=== PATIENT | female | born 1960 | race Caucasian/White ===

== ENCOUNTER → 2017-01-20 | Outpatient (CLI) | payer MEDICAID ==
--- NOTE | 2017-01-20 18:13 | XR ---
EXAMINATION TYPE: XR chest 2V DATE OF EXAM: 01/20/2017 COMPARISON: NONE HISTORY: Cough TECHNIQUE: Frontal and lateral views of the chest are obtained. FINDINGS: Heart and mediastinum are normal. Lungs are clear. Costophrenic angles are clear. There ar e no hilar masses. Bony thorax is intact. IMPRESSION: Normal chest
== END ==
LOC: RADXRMAIN 16:11
PROVIDERS: ATTEND Family Medicine
DX: J44.9 Chronic obstructive pulmonary disease, unspecified (principal)
CPT/HCPCS: 71020

== ENCOUNTER 2017-02-22 10:14 | Observation (INO) | payer MEDICAID ==
[2017-02-17 17:19] VITALS: BMI 28.3
[~2017-02-22 10:14] MED LIST: ACETAMINOPHEN TAB 500 MG TAB PO ONE; DEXAMETHASONE SOD PHOSPHATE 10 MG/ML 1 ML VIAL IV ONE; MIDAZOLAM 2 MG/2 ML VIAL IV PRN; ONDANSETRON 4 MG/2 ML VIAL IVP ONE; ceFAZolin IN SWFI 2 GM/20 ML SYRINGE IVP ONE
[2017-02-22] MEDS ORDERED: LACTATED RINGERS 1,000 ML IV ONE (10:30)
[2017-02-22] MEDS ORDERED: LIDOCAINE 1% 20 ML VIAL (10MG/ML) FOR IV START INTRADERMA ONE (10:30)
[2017-02-22] MEDS ORDERED: PROPOFOL 10 MG/ML 20 ML VIAL IV ONE (11:31)
[2017-02-22] MEDS ORDERED: LIDOCAINE 1% INJ 10MG/ML (20 ML MDV) ONE (11:31)
[2017-02-22] MEDS ORDERED: fentaNYL (PF) 50 MCG/ML 2 ML AMP ONE (11:31)
[2017-02-22] MEDS ORDERED: HYDROmorphone (PF) 1 MG/ML ONE (11:31)
[2017-02-22] MEDS ORDERED: MIDAZOLAM 2 MG/2 ML VIAL ONE (11:31)
[2017-02-22] MEDS ORDERED: BACITRACIN 500 UNIT/GM OINT 28.4 GM TUBE TOPICAL ONE (12:32)
[2017-02-22] MEDS ORDERED: SENNOSIDES-DOCUSATE SODIUM 1 EACH TAB PO PRN (12:58)
[2017-02-22] MEDS ORDERED: hydrOXYzine PAMOATE 25 MG CAP PO PRN (12:58)
[2017-02-22] MEDS ORDERED: HYDROmorphone 1 MG/ML 1 ML SYRINGE IVP PRN ×2 (12:58)
[2017-02-22] MEDS ORDERED: ONDANSETRON 4 MG/2 ML VIAL IVP PRN (12:58)
[2017-02-22] MEDS ORDERED: diphenhydrAMINE 25 MG CAP PO PRN (12:58)
[2017-02-22] MEDS ORDERED: METOCLOPRAMIDE 5 MG/ML 2 ML VIAL IVP PRN (12:58)
[2017-02-22] MEDS ORDERED: PROCHLORPERAZINE SUPPOSITORY 25 MG SUPP RECTAL PRN (12:58)
[2017-02-22] MEDS ORDERED: TEMAZEPAM 15 MG CAP PO PRN (12:58)
[2017-02-22] MEDS: HYDROmorphone 1 MG/ML 1 ML SYRINGE IVP PRN ×6 (13:01→21:18)
[2017-02-22] MEDS: ONDANSETRON 4 MG/2 ML VIAL IVP ONE ×2 (13:08→14:47)
[2017-02-22] MEDS ORDERED: KETOROLAC 30 MG/ML 1 ML VIAL IVP ONE (13:09)
[2017-02-22] MEDS ORDERED: diphenhydrAMINE 50 MG/ML 1 ML VIAL IVP ONE (13:11)
[2017-02-22] MEDS ORDERED: SODIUM CHLORIDE 0.9% 1,000 ML IV ONE (13:24)
--- NOTE | 2017-02-22 13:27 | OP ---
OPERATIVE REPORT DATE OF PROCEDURE: 02/22/2017 PREOPERATIVE DIAGNOSIS: Right knee inferior pole patellar patella fracture. POSTOPERATIVE DIAGNOSIS: Right knee very distal inferior pole patella fracture with patellar tendon rupture as well. PROCEDURE PERFORMED: Open repair right patellar tendon. SURGEON: Gelacio Frankel MD. WATCH HAIRSPRING ASSEMBLER: JOSSELINE Newman. ANESTHESIA: General endotracheal. ESTIMATED BLOOD LOSS: 25 mL. TOURNIQUET: None. DRAINS: None. COMPLICATIONS: None apparent. DISPOSITION: Postanesthesia care unit. INDICATIONS: Odalis is a very pleasant, 57-year-old female who slipped and fell, had significant pain and injury to her right knee. Workup including x-rays revealed a displaced distal pole patellar patella fracture. She presented to my office. Workup including x-rays revealed as such. She is an independent ambulator. Treatment options were discussed. Recommendation was for open reduction, internal fixation of the patella fracture and if the bone quality was too fragmented or too small for internal fixation of the patella fracture then the recommendation was to proceed with a primary repair of the right patellar tendon. The risks of procedure were discussed with Odalis and her family in detail. These risks include, but were not limited to risk of infection, nerve damage, bleeding, pain and risk of deep vein thrombosis that could lead to fatal pulmonary embolism. Further risks include failure of the tendon to heal and possibility for revision repair of the patellar tendon. All of Odalis and her family's questions were answered to their satisfaction. An appropriate informed consent was obtained. DESCRIPTION OF THE PROCEDURE: Patient identified in preoperative holding area. Surgical sites marked by both the patient and myself. She was given 2 grams of Ancef IV for prophylactic purposes. She was then transferred to the operative suite. She was placed supine on the operative table. General anesthetic was then administered and dosed per the anesthesia department without apparent complication. Tourniquet was then placed high on the right upper thigh well-padded in preparation for surgery. The tourniquet was not inflated throughout the entire procedure. The patient's right lower extremity was then prepped and draped in usual sterile fashion. Standard surgical pause was then undertaken to ensure that we were operating on the correct site and that appropriate preoperative antibiotic has been given. All staff in room are in agreement and we proceeded. The outlines of the patella as well as patellar tendon were marked with surgical pen. A planned 7 to 10 cm incision starting at the tibial tubercle and extending up to the superior pole of the patella was marked with surgical pen. Incision was then made with a 10 blade scalpel. Dissection was carried down sharply to the superficial fascia. This was then incised in line with the patellar tendon. Great care was taken to maximize the flaps for coverage at the end of the case. The paratenon was then incised in line with the patellar tendon and then it was retracted. She had obvious disruption of the patellar tendon. The inferior pole patella fracture portion of this was extremely fragmented. There was just a very small little pieces of bone noted. There was no significant bone fragments that would be amenable to any sort of internal fixation. Decision was made at that time to proceed with primary patellar tendon repair. Some of the comminuted fragments were removed. The nonarticular portion of the inferior pole of patella was then cleaned of any fibrinous tissue and then was roughened up to provide a nice bleeding surface for the repair with a curette. The undersurface of the patella was then evaluated. The cartilage was intact with no cartilage damage. The knee was then thoroughly irrigated with sterile saline solution with antibiotic added. I then proceeded with repair. I utilized two #5 FiberWire sutures. These were placed both medially and laterally and were secured to the tendon with a locking Krackow type suture. I then drilled 3 parallel holes from inferior to superior in the patella. The most lateral and most medial holes were 2.0 mm holes and the central hole was a 2.5 mm hole to accept 2 limbs of the #5 suture. The FiberWire suture limbs were then passed through the bone tunnels. The central 2 limbs were taken through the central hole and the lateral limb was taken through the lateral hole in the patella and the medial limb was taken through the medial tunnel. These were brought out superiorly through the quadriceps tendon utilizing a Hewson suture passer. The sutures were then tunneled under the tendon as to tie them over bone. The lateral sutures were then tied securely over bony bridge and the medial sutures were likewise tied securely over bony bridge. This provided good secure fixation of the patellar tendon to the inferior pole of patella. The medial lateral retinaculum were then repaired with #1 Vicryl interrupted suture. The patellar tendon repair was also reinforced with #1 Vicryl interrupted suture. The paratenon was then closed with 0 Vicryl interrupted suture and the fascial layer was closed with 0 Vicryl interrupted suture. Again the wound was thoroughly irrigated with sterile saline solution with antibiotic added. The subcutaneous tissue was closed with 2-0 Vicryl interrupted suture. The skin was closed with 3-0 Quill suture. Dermabond was applied to the incision. All sponge and needle counts were deemed correct prior to closure. The patient tolerated the procedure without apparent complication. She was placed into a hinged knee brace locked in full extension. She was transferred to the recovery room in stable condition. MMODL / IJN: [id number] / [facility]Van
[2017-02-22] MEDS: MEPERIDINE 50 MG/ML SYRINGE IVP ONE ×2 (13:45→14:02)
[2017-02-22] MEDS: LACTATED RINGERS 1,000 ML IV SCH ×2 (14:47→17:46)
[2017-02-22] MEDS: ceFAZolin IN SWFI 2 GM/20 ML SYRINGE IVP SCH (20:01)
[2017-02-22] MEDS: ASPIRIN 325 MG TAB PO SCH (21:19)
[2017-02-23] MEDS: HYDROmorphone 1 MG/ML 1 ML SYRINGE IVP PRN ×3 (01:35→07:26)
[2017-02-23] MEDS: LACTATED RINGERS 1,000 ML IV SCH ×3 (01:39→09:26)
[2017-02-23] MEDS: ceFAZolin IN SWFI 2 GM/20 ML SYRINGE IVP SCH (03:49)
[2017-02-23] MEDS ORDERED: HYDROcodone/APAP 7.5-325MG 1 EACH TAB PO PRN (08:45)
--- NOTE | 2017-02-23 08:53 | P.DS ---
Providers Date of admission: 02/23/17 02:51 Expected date of discharge: 02/23/17 Attending physician: Gelacio Frankel Primary care physician: Trell Weeks - Discharge Diagnosis(es) (1) Patella fracture Patient is a 57-year-old female who was admitted to the OR on Tuesday, 2017 to undergo ORIF of right patella and patellar tendon repair. She tolerated procedure well without complication. Her postoperative hospital course has remained without complication. On day of discharge she desires discharge to home. On day of discharge she is afebrile, vital signs stable, labs within acceptable ranges, wound is benign, neurovascular status intact, abdomen and calf are both soft and nontender. She is denying new complaints, abdominal pain, calf pain, numbness, tingling, fever, chills, chest pain, shortness of breath, dizziness, headaches, slurred speech or other. Current Visit: No Status: Acute Priority: Medium Procedures: ORIF right patella Patient Condition at Discharge: Good Plan - Discharge Summary Discharge Rx Participant: Yes New Discharge Prescriptions: New Aspirin 325 mg PO BID #60 tab Docusate [Colace] 100 mg PO BID #60 capsule HYDROcodone/APAP 7.5-325MG [[place] 7.5-325] 1 - 2 tab PO Q6HR PRN #60 tab PRN Reason: Pain No Action Naproxen [Naprosyn] 500 mg PO Q12HR PRN PRN Reason: Pain ALPRAZolam [Xanax] 0.25 mg PO BID PRN PRN Reason: Anxiety Hydrocodone/Acetaminophen [[place] 5-325] 1 tab PO Q6HR PRN #20 tab PRN Reason: Pain Discharge Medication List ALPRAZolam [Xanax] 0.25 mg PO BID PRN 02/16/17 [History] Hydrocodone/Acetaminophen [[place] 5-325] 1 tab PO Q6HR PRN #20 tab 02/16/17 [Rx] Naproxen [Naprosyn] 500 mg PO Q12HR PRN 02/16/17 [History] Aspirin 325 mg PO BID #60 tab 02/22/17 [Rx] Docusate [Colace] 100 mg PO BID #60 capsule 02/22/17 [Rx] HYDROcodone/APAP 7.5-325MG [[place] 7.5-325] 1 - 2 tab PO Q6HR PRN #60 tab [Rx] Follow up Appointment(s)/Referral(s): Gelacio Frankel MD [STAFF PHYSICIAN] - 10 Days Activity/Diet/Wound Care/Special Instructions: Maintain brace and bandage F/U with Dr. Frankel in office keep clean and dry take meds as directed elevate extremity Discharge Disposition: HOME SELF-CARE
[2017-02-23] MEDS: ASPIRIN 325 MG TAB PO SCH (09:28)
[2017-02-23 23:00] VITALS: BP 142/83; PULSE 71; RESP 18; TEMP 98.6
== END 2017-02-23 13:21 | disposition home or self-care (01) ==
LOC: OR 10:14 → 3SUR 12:55 → OR 02-23 02:51 → 3SUR 02-23 02:51
PROVIDERS: ADMIT Orthopaedic Surgery Sports Medicine; ATTEND Orthopaedic Surgery Sports Medicine
DX: S82.001A Unspecified fracture of right patella, initial encounter for closed fracture (principal); S76.111A Strain of right quadriceps muscle, fascia and tendon, initial encounter; Z79.899 Other long term (current) drug therapy; E78.5 Hyperlipidemia, unspecified; F17.200 Nicotine dependence, unspecified, uncomplicated; I10 Essential (primary) hypertension; Z79.1 Long term (current) use of non-steroidal anti-inflammatories (NSAID); Z79.891 Long term (current) use of opiate analgesic; Y92.512 Supermarket, store or market as the place of occurrence of the external cause; W01.0XXA Fall on same level from slipping, tripping and stumbling without subsequent striking against object, initial encounter
CPT/HCPCS: 27380; 27524; 94760; 97161; G0378; J2250; J1200; J1100; J2175; J0690 ×2; J2405; J2001; J3010; J1885; J1170 ×2; J2704

== ENCOUNTER → 2019-01-26 | Outpatient (CLI) | payer BC ==
--- NOTE | 2019-01-29 11:30 | MM ---
Reason for exam: screening (asymptomatic). Last mammogram was performed 1 year and 1 month ago. History: Patient is postmenopausal. Benign cyst aspiration of the right breast, May 25, 2004. Benign excisional biopsy of the left breast, February 23, 2002. Benign stereotactic core biopsy of the left breast, February 01, 2002. Core biopsy of the left breast. Physical Findings: A clinical breast exam by your physician is recommended on an annual basis and results should be correlated with mammographic findings. MG 3D Screening Mammo W/Cad Bilateral CC and MLO view(s) were taken. Prior study comparison: December 13, 2017, bilateral MG [facility] screening mammo. November 26, 2015, bilateral MG screening mammo w CAD. There are scattered fibroglandular densities. There are benign appearing stable bilateral masses likely intramammary lymph nodes. No suspicious abnormality. No significant changes when compared with prior studies. ASSESSMENT: Benign, BI-RAD 2 RECOMMENDATION: Routine screening mammogram of both breasts in 1 year.
== END | disposition home or self-care (01) ==
LOC: RADMAMWWP 13:52
PROVIDERS: ATTEND Family Medicine
DX: Z12.31 Encounter for screening mammogram for malignant neoplasm of breast (principal)
CPT/HCPCS: 77063; 77067

== ENCOUNTER → 2020-01-07 | Outpatient (CLI) | payer MEDICARE ==
--- NOTE | 2020-01-07 08:57 | US ---
EXAMINATION TYPE: US duplex aorta DATE OF EXAM: 01/07/2020 COMPARISON: NONE CLINICAL HISTORY: Z13.6 screening for cardiovascular disorder. Smoker x 40 years EXAM MEASUREMENTS: Abdominal Aorta: Proximal: 2.0cmTrans. x 2.5cm A/P Mid: 2.1cm Trans. x 1.8cm A/P Distal: 1.9cm Trans. x 1.8cm A/P Bifurcation: 1.0cm Trans. x 0.92cm A/P Right ASHANTI; 1.2 cm Trans. x 1.0cm A/P Left ASHANTI. Very mild intimal wall thickening is noted distal abdominal aorta. Color flow and PSV are documented in distal aorta. IMPRESSION: 1. Mild atherosclerotic changes with no evidence of aortic aneurysm. Maximal dimension is within the proximal aorta measuring 2.5 cm.
== END | disposition home or self-care (01) ==
LOC: RADUSWWP 08:17
PROVIDERS: ATTEND Family Medicine
DX: I70.0 Atherosclerosis of aorta (principal)
CPT/HCPCS: 93979

== ENCOUNTER → 2020-03-21 | Outpatient (CLI) | payer MEDICARE ==
--- NOTE | 2020-03-24 08:19 | MM ---
Reason for exam: screening (asymptomatic). Last mammogram was performed 1 year and 2 months ago. History: Patient is postmenopausal. Benign cyst aspiration of the right breast, May 25, 2004. Benign excisional biopsy of the left breast, February 23, 2002. Benign stereotactic core biopsy of the left breast, February 01, 2002. Core biopsy of the left breast. Physical Findings: A clinical breast exam by your physician is recommended on an annual basis and results should be correlated with mammographic findings. MG 3D Screening Mammo W/Cad Bilateral CC and MLO view(s) were taken. Prior study comparison: January 26, 2019, bilateral MG 3d screening mammo w/cad. December 13, 2017, bilateral MG [facility] screening mammo. There are scattered fibroglandular densities. There is chronic nodularity bilaterally. There is no discrete abnormality. ASSESSMENT: Benign, BI-RAD 2 RECOMMENDATION: Routine screening mammogram of both breasts in 1 year.
== END | disposition home or self-care (01) ==
LOC: RADMAMWWP 12:58
PROVIDERS: ATTEND Family Medicine
DX: Z12.31 Encounter for screening mammogram for malignant neoplasm of breast (principal)
CPT/HCPCS: 77063; 77067

== ENCOUNTER → 2020-03-24 | Outpatient (CLI) | payer MEDICARE ==
--- NOTE | 2020-03-24 15:26 | BD ---
EXAMINATION TYPE: Axial Bone Density DATE OF EXAM: 03/24/2020 COMPARISON: 11.26.2015 CLINICAL HISTORY: 60 YR OLD FEMALE.....ICD-10 CODE: Z78.0 MENOPAUSAL STATE Height: 61.4 Weight: 162 FRAX RISK QUESTIONS: History of Fracture in Adulthood: YES Secondary Osteoporosis: YES 1 3. Menopause before 45: YES 4Current Tobacco Use: YES RISK FACTORS HISTORY OF: HX OF PATELLAR FX RT KNEE, 4 YRS AGO Family History of Osteoporosis: YES, MOTHER Postmenopausal woman: YES AT AGE 40 YRS OLD Hyperparathyroidism: NO Adrenal Insufficiency: NO MEDICATIONS: Additional Medications: XANAX, ZOLOFT, VIT D Additional History: NOTHING ADDITIONAL TO NOTE HERE EXAM MEASUREMENTS: Bone mineral densitometry was performed using the [employer] System. Bone mineral density as measured about the Lumbar spine is: ----- L1-L4(G/cm2): 1.124 T Score Values are as follows: ----- L1: 0.0 ----- L2: -0.8 ----- L3: -0.6 ----- L4: -0.6 ----- L1-L4: -0.5 Bone mineral density has: Decreased -2.4% SINCE THE 11.26.2015 STUDY Bone mineral density about the R hip (g/cm2): 0.827 Bone mineral density about the L hip (g/cm2): 0.924 T Score values are as follows: -----R Neck: -1.5 -----L Neck: -1.3 -----R Total: -1.4 -----L Total: -0.7 Bone mineral density has: Decreased -2.6% SINCE THE 11.26.2015 STUDY FRAX%s: THERE IS A 13.7% CHANCE FOR A MAJOR OSTEOPOROTIC FX AND A 2.1% FOR HIP......PROBABILITY FO R FX IN 10 YRS TIME IMPRESSION: Osteopenia right hip. NOTE: T-SCORE=SD OF THE YOUNG ADULT MEAN.
== END | disposition home or self-care (01) ==
LOC: RADBDWWP 13:20
PROVIDERS: ATTEND Family Medicine
DX: M85.88 Other specified disorders of bone density and structure, other site (principal); Z78.0 Asymptomatic menopausal state
CPT/HCPCS: 77080

== ENCOUNTER → 2022-03-05 | Outpatient (CLI) | payer MEDICARE ==
--- NOTE | 2022-03-08 10:08 | MM ---
Reason for Exam: Screening (asymptomatic). Last mammogram was performed 2 year(s) and 0 month(s) ago. Patient History: Menarche at age 12. First Full-Term at age 17. Postmenopausal. Core Biopsy on the Left side. 02/23/2002, Benign Excisional Biopsy on the left side. 05/25/2004, Benign Cyst Aspiration on the right side. 02/01/2002, Benign Stereotactic Core Biopsy on the left side. Risk Values: Nataly 5 year model risk: 1.7%. NCI Lifetime model risk: 7.5%. Prior Study Comparison: 12/13/2017 Bilateral Screening Mammogram, [facility]. 01/26/2019 Bilateral Screening Mammogram, [facility]. 03/21/2020 Bilateral Screening Mammogram, [facility]. Tissue Density: There are scattered fibroglandular densities. Findings: Analyzed By CAD. Pattern appears symmetrical and stable. Chronic nodularity is within the left breast. No significant interval changes are evident. No suspicious groups of microcalcifications, spiculated or lobular masses, architectural distortion or other secondary signs of malignancy are mammographically apparent. Overall Assessment: Benign, BI-RAD 2 Management: Screening Mammogram of both breasts in 1 year. A negative mammogram report should not preclude additional follow up of suspicious palpable abnormalities. Patient should continue monthly self breast exam. A clinical breast exam by your physician is recommended on an annual basis and results should be correlated with mammographic findings. Electronically signed and approved by: Eamon Marquez D.O. Radiologis
== END | disposition home or self-care (01) ==
LOC: RADMAMWWP 14:34
PROVIDERS: ATTEND Family Medicine
DX: Z12.31 Encounter for screening mammogram for malignant neoplasm of breast (principal); Z78.0 Asymptomatic menopausal state; Z98.890 Other specified postprocedural states
CPT/HCPCS: 77063; 77067

== ENCOUNTER → 2023-03-08 | Outpatient (CLI) | payer MEDICARE ==
--- NOTE | 2023-03-08 14:38 | XR ---
EXAM TYPE: LUMBAR SPINE X RAY SERIES COMPARISON: NONE HISTORY: Pain TECHNIQUE: 4 views are submitted. FINDINGS: Alignment is anatomic. The pedicles are intact. The transverse processes are intact. There is no s pondylolysis or spondylolisthesis. Multilevel hypertrophic changes are seen. There is diffuse mild d egenerative disc disease L5-S1 with facet arthropathy. Multilevel degenerative disc disease thoracolu mbar junction. IMPRESSION: 1. Mild degenerative disc disease at L5-S1 with facet arthropathy suspected foraminal encroachment co nsider follow-up MRI. 2. Multilevel degenerative disc disease thoracolumbar junction. 3. Diffuse osteopenia.
--- NOTE | 2023-03-09 08:42 | BD ---
EXAMINATION TYPE: Axial Bone Density DATE OF EXAM: 03/08/2023 CLINICAL HISTORY: 63 years old Female. ICD-10 CODE: MENOPAUSAL STATE Z78.0 Height: 61 Weight: 151.0 FRAX RISK QUESTIONS: Alcohol (3 or more units per day): no Family History (Parent hip fracture): no Glucocorticoids (More than 3mos): no History of Fracture in Adulthood: rt wrist Secondary Osteoporosis: 1. Type 1 Diabetes: no 2. Hyperthyroidism: no 3. Menopause before 45: yes 4. Malnutrition: no 5. Chronic liver disease: no Rheumatoid Arthritis: no Current Tobacco Use: yes RISK FACTORS HISTORY OF: Hip Fracture (Right/Left): no Spine Fracture: no History of Wrist Fracture: yes When: 1991 Surgery to Spine/Hip(right/left)/Wrist (right/left): no Family History of Osteoporosis: no Active: yes Diet low in dairy products/other sources of calcium: yes Postmenopausal woman: yes Take estrogen and/or progesterone medications: no Lost more than 2 inches in height since high school: no Frequent falls: no Poor Health: no Hyperparathyroidism: no Adrenal Insufficiency: no MEDICATIONS: Prednisone or other steroids: no Thyroid Medications: no Osteoporosis Medications: no Additional Medications: Cholesterol Meds, Xanax, Depression meds, Additional History: EXAM MEASUREMENTS: Bone mineral densitometry was performed using the [employer] System. Bone mineral density as measured about the Lumbar spine is: ----- L1-L4(G/cm2): 1.074 T Score Values are as follows: ----- L1: -0.5 ----- L2: -1.0 ----- L3: -1.3 ----- L4: -0.8 ----- L1-L4: -0.9 Z Score Values are as follows: ----- L1: 0.8 ----- L2: 0.3 ----- L3: 0.0 ----- L4: 0.5 ----- L1-L4: 0.4 Bone mineral density has: decreased -4.4 % since study of: 03/24/2020 Bone mineral density about the R hip (g/cm2): 0.852 Bone mineral density about the L hip (g/cm2): 0.930 T Score values are as follows: -----R Neck: -1.6 -----L Neck: -1.4 -----R Total: -1.2 -----L Total: -0.6 Z Score values are as follows: -----R Neck: -0.3 -----L Neck: -0.1 -----R Total: -0.2 -----L Total: 0.4 Bone mineral density has: increased 1.8 % since study of: 03/24/2020 FRAX%s: The graph provided illustrates a 15.1% chance for a major osteoporotic fx and a 2.7% chance f or the hips probability for fx in 10 years time. IMPRESSION: Osteopenia (T Score between -2.5 and -1). There is slightly increased risk of fracture and the patient may be considered for treatment. Re-Screen 2-5 years. NOTE: T-SCORE=SD OF THE YOUNG ADULT MEAN.
--- NOTE | 2023-03-09 19:56 | MM ---
Reason for Exam: Screening (asymptomatic). Last screening mammogram was performed 12 month(s) ago. Patient History: Menarche at age 12. First Full-Term at age 17. Postmenopausal. Core Biopsy on the Left side. 02/23/2002, Benign Excisional Biopsy on the left side. 05/25/2004, Benign Cyst Aspiration on the right side. 02/01/2002, Benign Stereotactic Core Biopsy on the left side. Mother had ovarian cancer, age 50. Risk Values: Nataly 5 year model risk: 1.7%. NCI Lifetime model risk: 7.2%. Prior Study Comparison: 11/26/2015 Bilateral Screening Mammogram, [facility]. 12/13/2017 Bilateral Screening Mammogram, [facility]. 01/26/2019 Bilateral Screening Mammogram, [facility]. 03/21/2020 Bilateral Screening Mammogram, [facility]. 03/05/2022 Bilateral MG 3D screening mammo w/cad, [facility]. Tissue Density: There are scattered fibroglandular densities. Findings: Analyzed By CAD. Chronic nodularity on the left. There is no suspicious group of microcalcifications or new suspicious mass in either breast. Overall Assessment: Benign, BI-RAD 2 Management: Screening Mammogram of both breasts in 1 year. . Patient should continue monthly self-breast exams. A clinical breast exam by your physician is recommended on an annual basis. This exam should not preclude additional follow-up of suspicious palpable abnormalities. Note on Nataly scores and lifetime risk: 1. A Nataly score greater than 3% is considered moderate risk. If this is the case, consider specialist referral to assess eligibility for a risk reducing agent. 2. If overall lifetime risk for the development of breast cancer is 20% or higher, the patient may qualify for future screening with alternating mammogram and breast MRI. Electronically signed and approved by: Iggy Leone M.D. Radiologist
== END | disposition home or self-care (01) ==
LOC: RADMAMWWP 12:58
PROVIDERS: ATTEND Family Medicine
DX: Z12.31 Encounter for screening mammogram for malignant neoplasm of breast (principal); M85.89 Other specified disorders of bone density and structure, multiple sites; M51.37 Other intervertebral disc degeneration, lumbosacral region; M47.816 Spondylosis without myelopathy or radiculopathy, lumbar region; M85.88 Other specified disorders of bone density and structure, other site; Z78.0 Asymptomatic menopausal state
CPT/HCPCS: 72110; 77063; 77067; 77080

== ENCOUNTER → 2023-05-03 | Outpatient (CLI) | payer MEDICARE ==
--- NOTE | 2023-05-03 22:02 | MR ---
EXAMINATION TYPE: MR lumbar spine wo con DATE OF EXAM: 05/03/2023 COMPARISON: Lumbar spine x-ray March 08, 2023 HISTORY: Low back pain into legs but worse on the right x6 months TECHNIQUE: Multiplanar, multisequence imaging of the lumbar spine is performed without IV contrast. FINDINGS: Exam slightly suboptimal as there is motion artifact degradation. Sagittal images of the alex mbar spine show vertebral body heights and alignment to appear satisfactory. The intervertebral discs demonstrate multilevel disc desiccation L2-L3 through the L5-S1 levels but the disc space heights ar e maintained. The conus medullaris is normal in position and signal ending mid L1 level small Tarlov cysts on sagittal image 8 including 1.6 cm Tarlov cyst posterior to the S2 vertebra. Mild multilevel anterior spurring is seen. The bone marrow signal intensity is within normal limits. Axial images show T12-L1 and L1-L2 levels to appear within normal limits. Axial images at L2-L3 level shows mild broad-based posterior disc protrusion minimally effacing the a nterior thecal sac. Patent bilateral neural foramina. Axial images at L3-L4 level shows mild broad-based disc bulge effacing the anterior thecal sac. Paten t bilateral neural foramina. Axial images at L4-L5 levels [id number] broad disc bulge with mild to moderate facet arthropath y and ligamentum flavum hypertrophy. There is effacement of the intrathecal sac. There is mild/modera te greater than left bilateral anterior inferior neural foraminal narrowing. Axial images at L5-S1 level show mild/moderate facet arthropathy bilaterally. There is central disc p rotrusion the spinal canal is preserved. There is mild to moderate bilateral anterior inferior neural foraminal narrowing. Paraspinal muscle bulk is maintained. IMPRESSION: Multilevel degenerative changes in the mid to lower lumbar spine as detailed above.
== END | disposition home or self-care (01) ==
LOC: RADMRIMAIN 15:42
PROVIDERS: ATTEND Family Medicine
DX: M47.27 Other spondylosis with radiculopathy, lumbosacral region (principal); M51.27 Other intervertebral disc displacement, lumbosacral region; G96.191 Perineural cyst
CPT/HCPCS: 72148

== ENCOUNTER → 2023-09-22 | Outpatient (CLI) | payer MEDICARE ==
[2023-09-22 12:38] VITALS: BP 141/70; PULSE 65; RESP 16
--- NOTE | 2023-09-22 14:41 | P.PAINPG ---
PQRS Measure Charge Sheet Comment: HISTORY OF PRESENT ILLNESS: A 63 yr old female as a referral from Dr Polk presents today w severe and chronic LBP> 1 yr secondary to DDD, spondylosis and facet arthropathy without myelopathy, BL Sacroiliitis for evaluation. Pt states pain level is provoked at 6 /10 in intensity, constant, localized in the R lower lumbar spine, predominantly axial, sharp in character w occasional shooting pain towards the inner thigh. Pain is provoked by sitting for periods > 30 min. Pain is alleviated by PT x 6 wks which ended in June 2023, physician guided home stretches daily since June 2023, medications (Naproxen), topical BioFreeze, repositioning and rest . Oswestry axial pain score at 25. PMH: OA, Hyperlipidemia, Anxiety PSH: Denies SH: Daily tobacco use, Occasional ETOH use, Cannabis use FH: Non contributory All: See list Meds: See list REVIEW OF ORGAN SYSTEMS: CONSTITUTIONAL: No fevers or chills. No recent weight loss. NEUROLOGICAL: + numbness and tingling along the distal extremities. No seizure disorders or headaches. MUSCULOSKELETAL: + pain PSYCHIATRIC: Denies current depression or suicidal thoughts. Physical Examinations : Constitutional : Cooperative , not in acute distress . Neurologic : Cranial nerve II to XII intact. No focal neurological deficits. Psychiatric : alert & oriented x 3. Matching mood & appropriate affect. Judgment & insight intact. Musculoskeletal : Cervical Spine Motor strength in the deltoid and biceps: Normal right side. Normal Left side Motor strength biceps and the wrist extensors: Normal right side . Normal left side Motor strength in the triceps muscle: Normal right side. Normal left side Deep tendon reflexes: Normal at the biceps. Normal at Brachioradialis. Normal at triceps Vertebral body tenderness to deep palpation over Cervical facet loading test: positive bilaterally Spurling test: positive bilaterally Neck distraction test: positive bilaterally Cynthia sign: positive bilaterally Lumbar spine Motor strength lower extremities ,thigh and legs 5/5 Right side , 5/5 Left side Deep tendon reflexes : Normal Knee Jerk. Normal Ankle Jerk Vertebral body tenderness over Hicks Test positive Lumbar facet Loading Test: positive Right / positive Left Range of motion of the lumbar spine Flexion 30 degrees, extension 10 degrees Straight Leg Raise test: Left/ Right positive at degrees Symone test: positive right / positive left. Severe tenderness over the Sacroiliac joint on the Right / Left sides Gaenslen test: positive bilaterally Seated flexion test: positive bilaterally. Sacral spine : Severe tenderness over the Sacroiliac joint: right side / left side Range of motion: Flexion of the lumbar spine <60 degrees Range of motion: Extension of the l umbar spine <20 degrees Gaenslen's Test positive BL Symone test: positive right side > left side Thigh Thrust Test BL positive Sacral Thrust Test Imaging: MRI non contrast lumbar spine from 05/03/23 reviewed Assessment/ Plan : BL Sacroiliitis, Lumbar radiculopathy Recommendation of BL SI injection #1. Risks, benefits of procedure discussed and patient verbalized understanding. Admits to anti- coagulant use or medical history of diabetes. Protocol for discontinuation/ continuation of medications lucho procedure discussed. All questions answered. I have spent greater than 30 minutes on patient care today. Dr Hale was available by phone for the evaluation of this patient. The time was used to review the medical records including relevant urine studies and Prescription history (MAPs), review of the available imaging, evaluation and examination of the patient, coordination of care with the medical staff and if applicable referring physicians, as well as creation of the medical record - Pain Location Lower Back Pharmacological Interventions: Medication, PRN Medication PQRS Narrative: Smoking Status Current some day smoker Home Medications: Ambulatory Orders ALPRAZolam [Xanax] 0.25 mg PO BID PRN 02/16/17 Hydrocodone/Acetaminophen [[place] 5-325] 1 tab PO Q6HR PRN #20 tab 02/16/17 Naproxen [Naprosyn] 500 mg PO Q12HR PRN 02/16/17 Aspirin 325 mg PO BID #60 tab 02/22/17 Docusate [Colace] 100 mg PO BID #60 capsule 02/22/17 HYDROcodone/APAP 7.5-325MG [[place] 7.5-325] 1 - 2 tab PO Q6HR PRN #60 tab 02/22/17 Controlled Substance Measures - Controlled Substance Measures Is patient prescribed a controlled substance at discharge?: No
== END ==
LOC: PNWHC3 12:15
PROVIDERS: ATTEND Specialist
DX: M46.1 Sacroiliitis, not elsewhere classified (principal); M54.16 Radiculopathy, lumbar region; F17.200 Nicotine dependence, unspecified, uncomplicated
CPT/HCPCS: 99211

== ENCOUNTER 2023-11-15 09:02 | Day surgery (SDC) | payer MEDICARE ==
[~2023-11-15 09:02] MED LIST changes: -ACETAMINOPHEN TAB 500 MG TAB PO ONE; -DEXAMETHASONE SOD PHOSPHATE 10 MG/ML 1 ML VIAL IV ONE; +LACTATED RINGERS 1,000 ML IV SCH; -MIDAZOLAM 2 MG/2 ML VIAL IV PRN; -ONDANSETRON 4 MG/2 ML VIAL IVP ONE; -ceFAZolin IN SWFI 2 GM/20 ML SYRINGE IVP ONE
[2023-11-15 09:39] VITALS: TEMP 97.3
[2023-11-15] MEDS ORDERED: IOPAMIDOL M200 10 ML VIAL ONE (10:28)
[2023-11-15] MEDS ORDERED: methylPREDNISolone ACETATE 80 MG/ML 1 ML VIAL ONE (10:28)
[2023-11-15] MEDS ORDERED: ROPIVACAINE 5MG/ML 20ML VIAL ONE (10:28)
--- NOTE | 2023-11-15 10:38 | P.PCN ---
Date of Procedure: 11/15/23 Procedure(s) Performed: Procedure= bilateral sacroiliac joints steroid injection under fluoroscopy guidance (fluoroscopy image stored on file in the radiology Department ) Preoperative diagnosis= 1-sacroiliitis 2-lumbar degenerative disc disease 3- lumbar facet arthropathy Postoperative diagnosis=Same as preop Diagnosis . Complication = none Condition= stable Anesthesia= local anesthesia with ropivacaine 0.5% 4 ml only Indication for the procedure= patient complaining of low back pain , examination was positive for severe tenderness over the sacroiliac joints bilaterally and patient diagnosed with sacroiliitis, for this reason he/ she was good candidate for sacroiliac joint steroid injection. Description of the procedure= procedure risk and benefits discussed with the patient, including but not limited, risk of infection and bleeding, and ALLERGIC reaction to the medication and not complete pain relief and patient agreed with the preceding patient taken to the operating room, placed in prone position or standard monitors applied to the patient then after induction of anesthesia back prepped with chlorhexidine 3 times , Then under strict sterile technique, first I did the right sacroiliac joint the which was identified under fluoroscopy guidance been local infiltration of the s kin and subcu interstitial with lidocaine 1% then 22-gauge Quincke Needle advanced slowly under fluoroscopy and placed in the right sacroiliac joint needle placement confirmed with AP and oblique and lateral view, then after that Isovue 200 one mL injected which confirmed the correct needle placement with the appropriate arthrogram of the sacroiliac joint, and after appropriate needle placement confirmed and after negative aspiration, or heme , then Ropivacaine 0.5% 2 mL, and 30 mg of Depo-Medrol mixed together and injected in the right sacroiliac joint after negative aspiration patient tolerated the procedure well without any complication. Then the left sacroiliac joint steroid injection done under strict sterile technique local infiltration of the skin and subcu interstitial at the location of the left sacroiliac joint then a 22-gauge Quincke Needle advanced slowly under fluoroscopy time placed in the left sacroiliac joint, needle placement confirmed with AP and oblique and lateral view then after appropriate needle placement confirmed, with the AP and oblique and lateral then after negative aspiration Isovue 200 1 mL injected showed arthropathy of the left sacroiliac joint, and after negative aspiration 0.5% Ropivacaine 2 mL and 30 mg of Depo- Medrol injected in the left sacroiliac joint after negative aspiration patient tolerated the procedure well that any complications and she will follow up in clinic 3 weeks
--- NOTE | 2023-11-15 10:54 | FL ---
EXAMINATION TYPE: FL guided pain mgmt statistic DATE OF EXAM: 11/15/2023 HISTORY: Fluoroscopy time Total dose area product (DAP) in uGy*m?, mGy*cm? (or similar): 0.82711 IMPRESSION: 1. Fluoroscopy time. [facility], , 11/15/2023 10:52 AM
[2023-11-15 11:24] VITALS: BP 144/80; PULSE 65; RESP 16
== END 2023-11-15 11:24 | disposition home or self-care (01) ==
LOC: ORPAIN 09:02
PROVIDERS: ATTEND Specialist
DX: M46.1 Sacroiliitis, not elsewhere classified

== ENCOUNTER → 2023-11-28 | Outpatient (CLI) | payer MEDICARE ==
[2023-11-28 11:43] VITALS: BP 137/79; PULSE 66; RESP 18; TEMP 97.9
--- NOTE | 2023-11-28 15:05 | P.PAINPG ---
PQRS Measure Charge Sheet Comment: HISTORY OF PRESENT ILLNESS: A 63 yr old female presents today w severe and chronic LBP> 1 yr secondary to radiculopathy, spondylosis and facet arthropathy without myelopathy, BL Sacroiliitis for evaluation s/p BL SI injection #1. Pt states she experienced 0 % pain relief x 2 wks s/p procedure. Pt states pain level is provoked at 6 /10 in intensity, constant, localized in the R lower lumbar spine, predominantly axial, sharp in character w occasional shooting pain towards the inner thigh. Pain is provoked by sitting for periods > 30 min. Pain is alleviated by PT x 6 wks which ended in June 2023, physician guided home stretches daily since June 2023, medications, topical , repositioning and rest . Interventional procedures include BL SI injection x1 Medications include Naproxen, BioFreeze Gel, Cannabis use REVIEW OF ORGAN SYSTEMS: CONSTITUTIONAL: No fevers or chills. No recent weight loss. NEUROLOGICAL: + numbness and tingling along the distal extremities. No seizure disorders or headaches. MUSCULOSKELETAL: + pain PSYCHIATRIC: Denies current depression or suicidal thoughts. Physical Examinations : Constitutional : Cooperative , not in acute distress . Neurologic : Cranial nerve II to XII intact. No focal neurological deficits. Psychiatric : alert & oriented x 3. Matching mood & appropriate affect. Judgment & insight intact. Musculoskeletal : Cervical Spine Motor strength in the deltoid and biceps: Normal right side. Normal Left side Motor strength biceps and the wrist extensors: Normal right side . Normal left side Motor strength in the triceps muscle: Normal right side. Normal left side Deep tendon reflexes: Normal at the biceps. Normal at Brachioradialis. Normal at triceps Vertebral body tenderness to deep palpation over Cervical facet loading test: positive bilaterally Spurling test: positive bilaterally Neck distraction test: positive bilaterally Cynthia sign: positive bilaterally Lumbar spine Motor strength lower extremities ,thigh and legs 5/5 Right side , 5/5 Left side Deep tendon reflexes : Normal Knee Jerk. Normal Ankle Jerk Vertebral body tenderness over Hicks Test positive Lumbar facet Loading Test: positive Right / positive Left Range of motion of the lumbar spine Flexion 30 degrees, extension 10 degrees Straight Leg Raise test: Left/ Right positive at degrees Symone test: positive right / positive left. Severe tenderness over the Sacroiliac joint on the Right / Left sides Gaenslen test: positive bilaterally Seated flexion test: positive bilaterally. Sacral spine : Severe tenderness over the Sacroiliac joint: right side / left side Range of motion: Flexion of the lumbar spine <60 degrees Range of motion: Extension of the lumbar spine <20 degrees Gaenslen's Test positive BL Symone test: positive right side > left side Thigh Thrust Test BL positive Sacral Thrust Test Imaging: MRI non contrast lumbar spine from 05/03/23 reviewed Assessment/ Plan : BL Sacroiliitis, Lumbar radiculopathy Will follow up w Dr Polk to explore additional treatment options. All questions answered. I have spent greater than 30 minutes on patient care today. Dr Hale was available by phone for the evaluation of this patient. The time was used to review the medical records including relevant urine studies and Prescription history (MAPs), review of the available imaging, evaluation and examination of the patient, coordination of care with the medical staff and if applicable referring physicians, as well as creation of the medical record - Pain Location Bilateral Hip Pharmacological Interventions: PRN Medication PQRS Narrative: Smoking Status Current some day smoker Hx Alcohol Use (MH) Yes Home Medications: Ambulatory Orders ALPRAZolam [Xanax] 0.25 mg PO BID PRN 02/16/17 Naproxen [Naprosyn] 500 mg PO Q12HR PRN 02/16/17 Rosuvastatin [Crestor] 20 mg PO DAILY 11/14/23 Sertraline [Zoloft] 100 mg PO DAILY 11/14/23 Controlled Substance Measures - Controlled Substance Measures Is patient prescribed a controlled substance at discharge?: No
== END | disposition home or self-care (01) ==
LOC: PNWHC3 09:08
PROVIDERS: ATTEND Specialist
DX: M46.1 Sacroiliitis, not elsewhere classified
CPT/HCPCS: 99211

== ENCOUNTER → 2024-04-20 | Outpatient (CLI) | payer MEDICARE ==
[2024-04-20 15:45] LABS: INR 0.9 (<1.2); Partial Thromboplastin Time 22.2 sec (22.0-30.0); Prothrombin Time 10.1 sec (10.0-12.5)
[2024-04-20 18:17] LABS: Basophils # (A) 0.05 X 10*3/uL (0.00-0.10); Basophils % (A) 0.7 %; Eosinophils # (A) 0.22 X 10*3/uL (0.04-0.35); Eosinophils % (A) 2.9 %; HCT 43.5 % (37.2-46.3); HGB 14.4 g/dL (12.0-15.0); Lymphocytes # (A) 2.52 X 10*3/uL (0.90-5.00); MCH 29.7 pg (27.0-32.0); MCHC 33.1 g/dL (32.0-37.0); MCV 89.7 FL (80.0-97.0); Mean Platelet Volume 11.4 FL (9.5-12.2); Monocytes # (A) 0.56 X 10*3/uL (0.20-1.00); Monocytes % (A) 7.3 %; NRBC Per 100 WBC 0 X 10*3/uL (0.00-0.01); Neutrophils # (A) 4.28 X 10*3/uL (1.80-7.70); Platelet Count 257 X 10*3/uL (140-440); RBC 4.85 X 10*6/uL (4.10-5.20); RDW 12.2 % (11.5-14.5); WBC 7.64 X 10*3/uL (4.50-10.00)
[2024-04-20 20:57] LABS: Appearance,Urine Cloudy (Clear); Bacteria,Urine 3+ (None Seen); Bilirubin,Urine Small (Negative); Blood,Urine Negative (Negative); Calcium Oxalate Crystals,Urine Present (None Seen); Color,Urine Dark Yellow (Yellow); Ketones,Urine Trace (Negative); Nitrite,Urine Negative (Negative); Specific Gravity,Urine 1.033 (1.001-1.030)
[2024-04-21 02:03] LABS: Blood Urea Nitrogen 13.2 mg/dL (9.0-27.0); Calcium 9.8 mg/dL (8.7-10.3); Carbon Dioxide 25.7 mmol/L (21.6-31.8); Chloride 106 mmol/L (96-109); Glucose 129 mg/dL (70-110); Potassium 4.2 mmol/L (3.5-5.5); Sodium 143 mmol/L (135-145)
--- NOTE | 2024-04-21 08:43 | XR ---
EXAMINATION TYPE: XR chest 2V DATE OF EXAM: 04/20/2024 3:26 PM COMPARISON: Chest radiographs from 01/20/2017 TECHNIQUE: XR chest 2V Frontal and lateral views of the chest. CLINICAL INDICATION:Female, 64 years old with history of Z01.818; preop for surgical surgery. FINDINGS: Lungs/Pleura: There is no evidence of pleural effusion, focal consolidation, or pneumothorax. Pulmonary vascularity: Unremarkable. Heart/mediastinum: Cardiomediastinal silhouette is unremarkable. Musculoskeletal: Multiple level degenerative disc disease changes seen throughout the spine. IMPRESSION: No acute cardiopulmonary disease/process. [facility], , 04/21/2024 8:40 AM
== END | disposition home or self-care (01) ==
LOC: LABPAT 14:55
PROVIDERS: ATTEND Orthopaedic Surgery Orthopaedic Surgery of the Spine
DX: Z01.818 Encounter for other preprocedural examination (principal); G95.9 Disease of spinal cord, unspecified; M48.02 Spinal stenosis, cervical region; Z22.322 Carrier or suspected carrier of Methicillin resistant Staphylococcus aureus
CPT/HCPCS: 71046; 80048; 81001; 85025; 85610; 85730; 86850; 86900; 86901; 87070

== ENCOUNTER 2024-04-25 05:50 | Day surgery (SDC) | payer MEDICARE ==
[2024-04-25] MEDS ORDERED: LIDOCAINE 1% (10MG/ML) FOR IV START INTRADERMA PRN (06:08)
[2024-04-25] MEDS: IV FLUID CONTINUATION 1,000 ML IV ONE ×3 (06:34→06:56)
[2024-04-25] MEDS: ONDANSETRON 4 MG/2 ML VIAL IVP ONE (06:37)
[2024-04-25] MEDS: LACTATED RINGERS 1,000 ML IV SCH (06:39)
[2024-04-25] MEDS: MIDAZOLAM 2 MG/2 ML VIAL IV ONE (06:47)
[2024-04-25] MEDS: FAMOTIDINE 20 MG/2 ML VIAL IV STA (06:48)
[2024-04-25] MEDS ORDERED: NEOSTIGMINE 1 MG/ML 10 ML VIAL ONE (07:28)
[2024-04-25] MEDS ORDERED: LIDOCAINE 1% INJ 10MG/ML (20 ML MDV) ONE (07:28)
[2024-04-25] MEDS ORDERED: SUCCINYLCHOLINE CHLORIDE 200 MG/10 ML VIAL IV ONE (07:28)
[2024-04-25] MEDS ORDERED: ePHEDrine 50 MG/ML 1 ML VIAL ONE (07:28)
[2024-04-25] MEDS ORDERED: MIDAZOLAM 2 MG/2 ML VIAL ONE (07:28)
[2024-04-25] MEDS ORDERED: DEXAMETHASONE SOD PHOSPHATE 10 MG/ML 1 ML VIAL ONE (07:28)
[2024-04-25] MEDS ORDERED: PROPOFOL 10 MG/ML 20 ML VIAL IV ONE (07:28)
[2024-04-25] MEDS ORDERED: GLYCOPYRROLATE 0.2 MG/ML 2 ML VIAL ONE (07:28)
[2024-04-25] MEDS ORDERED: WATER FOR INJECTION, STERILE 10 ML VIAL IV ONE (07:28)
[2024-04-25] MEDS ORDERED: fentaNYL (PF) 50 MCG/ML 2 ML AMP ONE (07:28)
[2024-04-25] MEDS ORDERED: ROCURONIUM 10 MG/ML (5 ML VIAL) IV ONE (07:28)
[2024-04-25] MEDS ORDERED: PHENYLEPHRINE-0.9% NACL SYG 1,000 MCG/10 ML SYRINGE ONE (07:28)
[2024-04-25] MEDS: LIDOCAINE 1%-EPI 1:100,000 20 ML VIAL SQ ONE (08:02)
[2024-04-25] MEDS: ceFAZolin 1,000 MG in SODIUM CHLORIDE 0.9% 1,000 ML IRRIGATION ONE (08:06)
[2024-04-25] MEDS: THROMBIN (BOVINE) 5,000 UNIT VIAL TOPICAL ONE (08:07)
--- NOTE | 2024-04-25 08:33 | XR ---
EXAMINATION TYPE: XR cervical spine 1V DATE OF EXAM: 04/25/2024 8:26 AM COMPARISON: 11/26/2015 CLINICAL INDICATION: Female, 64 years old with history of Needle Placement; PHH, pain TECHNIQUE: XR cervical spine 1V, (1-2) views of the cervical spine FINDINGS: Instrument pointing at the C4-C5 disc space. Endotracheal tube in place. Degeneration changes of the spine. IMPRESSION: Surgical instrument pointing at the C4-C5 disc space. [facility], , 04/25/2024 8:30 AM
[2024-04-25] MEDS: LACTATED RINGERS 1,000 ML IV ONE (09:45)
--- NOTE | 2024-04-25 09:56 | XR ---
EXAMINATION TYPE: XR cervical spine 1V DATE OF EXAM: 04/25/2024 9:42 AM COMPARISON: Same day radiograph. CLINICAL INDICATION: Female, 64 years old with history of Hardware Placement; PHH, pain TECHNIQUE: XR cervical spine 1V, (1-2) views of the cervical spine FINDINGS: Fixation changes to the spine hardware appears intact. Fixation changes extending from C4 t hrough C7. Endotracheal tube in place. Mild degeneration changes of the spine. IMPRESSION: Post fixation changes no evidence for hardware failure. [facility], , 04/25/2024 9:54 AM
[2024-04-25] MEDS ORDERED: ONDANSETRON 4 MG/2 ML VIAL IVP PRN (09:59)
[2024-04-25] MEDS ORDERED: HYDROmorphone 0.5 MG/0.5 ML SYRINGE IVP PRN (09:59)
--- NOTE | 2024-04-25 10:05 | P.OP ---
Date of Procedure: 04/25/24 Preoperative Diagnosis: Cervical myelopathy, cervical myelomalacia, severe cervical stenosis C4-5 C5-6 C6-7, upper and lower extremity weakness, myeloradiculopathy Postoperative Diagnosis: Same Anesthesia: GETA Pathology: none sent Condition: stable Disposition: PACU Description of Procedure: BRIEF OPERATIVE NOTE Preoperative Diagnosis:Cervical myelopathy, cervical myelomalacia, severe cervical stenosis C4-5 C5-6 C6-7, upper and lower extremity weakness, myeloradiculopathy Postoperative Diagnosis:Cervical myelopathy, cervical myelomalacia, severe ce rvical stenosis C4-5 C5-6 C6-7, upper and lower extremity weakness, myeloradiculopathy Procedure: Anterior cervical decompression with discectomy and fusion C4-5 C5-6 C6-7 Placement of interbody graft C4 5 C5-6 C6-7 Application of anterior cervical plate C4-5-6 and 7 Surgeon: Dr. Hebert Lumber Straightener: David JIMENEZ who is present throughout the entire the case nagi juarez during positioning, dissection, exposure, visualization, and all crucial elements of the case as well as closure. Anesthesia: General anesthesia per Dr. Leone Estimated blood loss: Approximately 50 cc Complications: None apparent Components implanted: K2M [place] Lulu anterior cervical plate system with 51 mm plate and 8 screws with Vikos interbody allograft bone graft and 1 cc of DBX bone putty Disposition: To recovery room in good stable condition. OPERATIVE INDICATIONS The patient has had long-standing issues in their neck and upper extremities and her lower extremities. She is having worsening trouble with her walking and her gait and she came in for evaluation for her lumbar spine. We were able to discern that her issues extended beyond her lumbar spine and she seemed to have spinal cord issues with evidence of myelopathy. She had been having significant troubles in her upper extremities as well. She was found to have significant degenerative changes and evidence of severe spinal stenosis with myelomalacia and myelopathy stemming from her cervical spine. The patient has been through conservative treatment. We felt that she would have significant worsening if sh e was left without further treatment and felt that her best course of care would be to pursue surgical intervention for decompression at her cervical spine. We discussed various treatment options including surgery, and the patient wishes to proceed with surgery We discussed the risk, patient's alternatives and benefits of surgery including but not limited to, risk of bleeding risk of infection, r isk of need for further surgery, risk of decreased, loss of motion, muscle function, malunion nonunion, hardware failure, nerve damage, paralysis, heart attack, and . OPERATIVE SUMMARY After discussing all the risks, patient alternatives and benefits at length, the patient elected to proceed with surgical intervention, signed informed consent, and presented for their procedure. The patient was seen and examined in the preoperative holding area and the surgical site was marked. The patient was given antibiotics and brought to the operating room. The patient was positioned on the operating room table in a supine position being careful to pad any bony prominences and pressure points. The patient was sedated and intubated by anesthesia in standard fashion. Once the airway and C-spine were stabilized the patient's arms were padded and tucked at her side, with her shoulders gently taped. The head was placed in a donut pad with the neck in good neutral alignment and position. We were careful to maintain the patient's cervical spine and good neutral alignment and position throughout. The patient was prepped and draped in a normal standard fashion. An appropriate timeout and keystone protocol performed. We were able to proceed with the surgery. The local wound area was infiltrated with local anesthetic. An incision was made transversely approximately 2-1/2 cm over the appropriate levels at C6. Dissection was taken down subcutaneously to the level of the platysma which was split in line with its fibers. Dissection was taken with a carotid approach, with the trachea and esophagus medial and the carotid sheath laterally. We dissected down to the anterior surface of the vertebral bodies. Intraoperative x-ray was taken which showed a marker at the appropriate level at C4-5. With the appropriate level positively confirmed, we were able to proceed with discectomy at the appropriate levels. All of the operative levels were exposed appropriately from C4-C7. The patient had all their twitches back, and there was no evidence of recurrent laryngeal issue. The wound was copiously irrigated and suctioned dry as had been done periodically throughout the case. At the appropriate level/levels, starting at C4-5 and then moving to C5-6 and then C6-7, I established an annulotomy with an 11 blade scalpel. A discectomy was performed with a combination of pituitary rongeurs, curettes, a high-speed bur, and Kerrison rongeurs. The posterior longitudinal ligament was taken down as were any posterior osteophytes. This gave good central and bilateral foraminal decompression. There is no evidence of any dural tear or leak. The endplates were prepared with a high-speed bur. With the endplates in good parallel position, I was able to size for the appropriate size interbody graft. The wound was irrigated and suctioned dry the graft was prepared and malleted into position. It had good alignment and position with the anterior surface flush with the anterior surface of the vertebral bodies. This was done similarly the appropriate levels at C4-5 and then C5-6 and C6-7. With the grafts intact, I was able to measure and contour and appropriate sized plate. The plate was positioned at the midline over the appropriate levels at C4-5-6 and 7. Screw holes were established with a hand drill and drill guide. Screws were placed in good alignment and position with excellent bony purchase. They were seated under the locking device. The construct was checked and found to be stable. Intraoperative x-ray was taken which showed good alignment and position of the implants at the appropriate levels. There was no evidence of any dural tear or leak. Good hemostasis was maintained. The wound was copiously irrigated and suctioned dry as had been done periodically throughout the case. The platysma was closed with absorbable suture. The subcutaneous tissue was closed. The subcuticular tissue was closed with absorbable suture. The wound was cleaned and dried and dressed appropriately. A soft cervical collar was placed appropriately. The patient was woken up by anesthesia, extubated, transferred back gently to their hospital bed and brought to the recovery room in good stable condition. The patient will be admitted to the hospital for appropriate postoperative care, medical management and monitoring. We will continue to follow them closely about the postoperative course.
[2024-04-25] MEDS: HYDROmorphone 0.5 MG/0.5 ML SYRINGE IVP PRN (10:48)
[2024-04-25] MEDS: HYDROcodone/APAP 5-325MG 1 EACH TAB PO PRN (13:18)
[2024-04-25] MEDS: SODIUM CHLORIDE 0.9% 1,000 ML IV SCH (13:19)
[2024-04-25] MEDS: CYCLOBENZAPRINE 10 MG TAB PO PRN (16:39)
[2024-04-25] MEDS: BENZOCAINE/MENTHOL LOZENG 1 EACH LOZENGE MUCOUS MEM PRN (20:29)
[2024-04-25] MEDS ORDERED: ALPRAZolam 0.25 MG TAB PO PRN (20:33)
[2024-04-25] MEDS ORDERED: ACETAMINOPHEN TAB 325 MG TAB PO PRN (20:45)
[2024-04-25] MEDS: ATORVASTATIN 40 MG TAB PO SCH (21:29)
[2024-04-25] MEDS: SERTRALINE 100 MG TAB PO SCH (21:29)
[2024-04-26] MEDS: CHOLECALCIFEROL 25 MCG (1000 IU) TABLET PO SCH (08:25)
[2024-04-26] MEDS: SENNOSIDES-DOCUSATE SODIUM 1 EACH TAB PO SCH (08:25)
[2024-04-26 08:54] VITALS: BP 131/77; PULSE 67; RESP 16; TEMP 97.7
--- NOTE | 2024-04-26 11:15 | P.DS ---
Providers Date of admission: 04/25/2024 Expected date of discharge: 04/26/24 Attending physician: Tu Hebert Primary care physician: Trell eWeks - Discharge Diagnosis(es) (1) Status post cervical spinal fusion Current Visit: Yes Status: Acute (2) Cervical myelopathy Current Visit: Yes Status: Acute (3) Cervical cord myelomalacia Current Visit: Yes Status: Acute (4) Upper extremity weakness Current Visit: Yes Status: Acute (5) Lower extremity weakness Current Visit: Yes Status: Acute (6) Cervicalgia Current Visit: Yes Status: Acute (7) Cervical stenosis of spinal canal Current Visit: Yes Status: Acute (8) Cervical radiculopathy Current Visit: Yes Status: Acute (9) Hypertension Current Visit: Yes Status: Acute (10) Depression Current Visit: Yes Status: Acute (11) Anxiety Current Visit: Yes Status: Acute (12) PTSD (post-traumatic stress disorder) Current Visit: Yes Status: Acute Hospital Course: This is a pleasant 64-year-old female who presented with cervical myelopathy, ce rvical myelomalacia, upper extremity and lower extremity weakness, myeloradiculopathy, and severe cervical stenosis at C4-5, C5-6, and C6-7. She was admitted C4-5, C5-6, and C6-7 anterior cervical decompression and fusion. The patient tolerated the procedure well and did well postoperatively. She has some soreness at her throat but has been able to swallow food without difficulty. Her pain has been adequately controlled with oral medications. She does have some ongoing numbness in the fingers of the hands bilaterally. She has been voiding without difficulty. She has been using her soft cervical collar for comfort and support as needed. She feels she is ready for discharge home today. Condition on day of discharge stable. Patient will be discharged home. Patient was cleared preoperatively for surgery by Dr. Weeks. Patient currently denies any nausea, vomiting, fever, or chills. Patient is eating and voiding freely without difficulty. Patient may shower Optifoam dressing intact. Patient may remove Optifoam dressing in 3 days and shower without a dressing at that time. Patient should refrain from driving until at least after their first follow-up appointment in the office. Patient should avoid excessive neck flexion, extension, rotation, and lateral sidebending; no overhead lifting; no lifting greater than 10 pounds. MAPS has been reviewed today, 04/26/2024, with an Overall Overdose Risk Score of 200. An "Opiod Start Talking" Form has been signed and placed in the patient's chart. A prescription has been written for Matlock 5 mg / 325 mg, 1 tab, every 6 hours, as needed for acute pain, dispense #28. Prescriptions also written for cyclobenzaprine 10 mg, 1 tab, 3 times daily, as needed for muscle spasm, dispense #60 and Senokot-S, 1 tab, twice daily, as needed for constipation, dispense #60. Prescriptions are sent to the patient's pharmacy per request of the patient. Patient's other medical diagnoses include hypertension, depression, anxiety, and PTSD. Physical Exam on day of discharge: Patient is awake, alert, and oriented 3 Vital signs stable Good chest excursion with deep inspiration and expiration Adequate range of motion of the cervical spine with adequate flexion, extension, and bilateral rotation Loading Supervisor strength, thumb strength, interosseous strength, biceps strength, triceps strength, and shoulder strength positive sustained bilaterally Soft cervical collar intact Incision is clean, dry, and intact; no erythema, purulence, or signs of infection Optifoam dressing intact Procedures: C4-5, C5-6, and C6-7 anterior cervical decompression and fusion Patient Condition at Discharge: Stable Plan - Discharge Summary Discharge Rx Participant: Yes New Discharge Prescriptions: New Cyclobenzaprine [Flexeril] 10 mg PO TID PRN #60 tab PRN Reason: Muscle Spasm Sennosides-Docusate Sodium [Senokot-S] 1 tab PO BID PRN #60 tablet PRN Reason: Constipation HYDROcodone/APAP 5-325MG [Matlock 5] 1 each PO Q6HR PRN #28 tab PRN Reason: Pain No Action Naproxen [Naprosyn] 500 mg PO Q12HR PRN PRN Reason: Pain ALPRAZolam [Xanax] 0.25 mg PO BID PRN PRN Reason: Anxiety Sertraline [Zoloft] 100 mg PO HS Rosuvastatin [Crestor] 20 mg PO HS Cholecalciferol (Vitamin D3) [Vitamin D3 (50 Mcg = 2000 Iu)] 50 mcg PO DAILY Acetaminophen [Tylenol] 650 mg PO Q6H MDD pain Discharge Medication List ALPRAZolam [Xanax] 0.25 mg PO BID PRN 12/27/17 [History] Naproxen [Naprosyn] 500 mg PO Q12HR PRN 02/16/17 [History] Rosuvastatin [Crestor] 20 mg PO HS 11/14/23 [History] Sertraline [Zoloft] 100 mg PO HS 11/14/23 [History] Acetaminophen [Tylenol] 650 mg PO Q6H MDD pain 04/20/24 [History] Cholecalciferol (Vitamin D3) [Vitamin D3 (50 Mcg = 2000 Iu)] 50 mcg PO DAILY 04/20/24 [History] Cyclobenzaprine [Flexeril] 10 mg PO TID PRN #60 tab 04/26/24 [Rx] HYDROcodone/APAP 5-325MG [Matlock 5] 1 each PO Q6HR PRN #28 tab 04/26/24 [Rx] Sennosides-Docusate Sodium [Senokot-S] 1 tab PO BID PRN #60 tablet 04/26/24 [Rx] Follow up Appointment(s)/Referral(s): David Pollard, JOSSELINE [PHYSICIAN [employer]] - 2 Weeks (Patient may follow-up with David Pollard PA-C or Dr. Kofi Hebert at [facility] in 2-3 weeks following discharge. ) Activity/Diet/Wound Care/Special Instructions: 1. Patient may shower with Optifoam dressing intact. 2. Patient may remove Optifoam dressing in 3 days and shower without a dressing at that time. 3. Patient may wear soft cervical collar for comfort support as needed. 4. Patient should refrain from driving until at least after their first follow- up appointment in the office. 5. Patient should avoid excessive cervical flexion, extension, and side bending; avoid overhead lifting; no lifting greater than 10 pounds 6. Take medications as prescribed 7. Patient should avoid anti-inflammatory medications over the next 6 weeks postoperatively 8. Do not soak in tub Discharge Disposition: HOME SELF-CARE
== END 2024-04-26 12:10 | disposition home or self-care (01) ==
LOC: OR 05:50 → 4SSUR 10:07 → OR 04-26 12:10
PROVIDERS: ATTEND Orthopaedic Surgery Orthopaedic Surgery of the Spine
DX: M47.12 Other spondylosis with myelopathy, cervical region (principal); M48.02 Spinal stenosis, cervical region; G95.89 Other specified diseases of spinal cord; I10 Essential (primary) hypertension; F43.10 Post-traumatic stress disorder, unspecified; F41.9 Anxiety disorder, unspecified; F32.9 Major depressive disorder, single episode, unspecified
CPT/HCPCS: 72020; 22551; C1713 ×2; C1762 ×2; J2250; J0330; J1100; J2710; J0690 ×2; J2405; J2003; J3010; J3490; J2704; J1171; J2371; J1596